=== PATIENT | female | born 1965 | race Caucasian/White ===

== ENCOUNTER 2022-02-07 22:48 | Emergency (ER) | payer SELFPAY ==
[~2022-02-07] VITALS: Ht 162.6 cm; Wt 108.9 kg
[2022-02-07 22:50] VITALS: BP_SYST 170; BP_SYST 175; BP_DIAS 78
--- NOTE | 2022-02-07 22:50 | NUR ---
TO BED AMBULATORY
--- NOTE | 2022-02-07 23:17 | NUR ---
PT AMBULATED TO BED #7
--- NOTE | 2022-02-07 23:30 | NUR ---
56 Y/O FEMALE BIB SELF, C/O SOB X2 DAYS. PATIENT PRESENTS TO ED WITH RESPIRATIONS WNL. PT STATES YESTERDAY SHE HEARD HER BREATH SOUND "GURGGLY" WHILE IN BED AND NEEDS TO PROP HERSELF UP WITH PILLOWS; PT ALSO NOTICED TODAY THAT THERE WAS ALL OVER SWELLING. DENIES N/V/D; PT IS NOT DIZZY OR TACHYPNIC; SKIN IS PINK/WARM/DRY; AAOX4 WITH EVEN AND STEADY GAIT; HR EVEN AND REGULAR; PT DENIES ANY FEVER OR CP AT THIS TIME; VSS; PATIENT POSITIONED FOR COMFORT; HOB ELEVATED; BEDRAILS UP X2; BED DOWN. ER MD MADE AWARE OF PT STATUS. FALL W/ INJURY TO R ELBOW LAST WK, SEEN AT [facility]. PT STATES SHE HAS NEEDED TO USE HER INHALER MORE OFTEN SINCE THE INJURY. HX: CHOLECYSTECTOMY, ASTHMA, AORTIC VALVE REPLACEMENT (1990) [facility] MEDS: ALBUTEROL, SINGULAIR, LISINOPRIL, WARFARIN, ZOLOFT
--- NOTE | 2022-02-07 23:42 | NUR ---
urine cup provided
--- NOTE | 2022-02-07 23:53 | NUR ---
RAD AT BESIDE FOR CXR
[2022-02-07] MEDS ORDERED: NITROGLYCERIN 0.4 MG TAB SL ONE (23:55)
[2022-02-08 00:07] LABS: PHOSPHORUS 2.4 mg/dL (2.5-4.9)
[2022-02-08 00:09] LABS: ALBUMIN 3.3 g/dL (3.4-5.0); ANION GAP 10.1 (8-16); CARBON DIOXIDE 28.4 mmol/L (21-32); CREATININE 0.9 mg/dL (0.6-1.3); POTASSIUM 3.5 mmol/L (3.5-5.1); TOTAL BILIRUBIN 0.3 mg/dL (0.0-1.0)
[2022-02-08 00:20] LABS: BASOPHILS # (AUTO) 0.1 K/uL (0.00-0.22); BASOPHILS % (AUTO) 0.7 % (0.0-2.0); EOSINOPHILS # (AUTO) 0.3 K/uL (0-0.4); HEMATOCRIT 36.8 % (36-48); HEMOGLOBIN 12.2 g/dL (12.0-16.0); LYMPHOCYTES # (AUTO) 2.4 K/uL (2.5-16.5); LYMPHOCYTES % (AUTO) 30.3 % (20.5-51.1); MEAN CORPUSCULAR HEMOGLOBIN 29 pg (27-31); MEAN CORPUSCULAR HGB CONC 33 g/dL (33-37); MEAN CORPUSCULAR VOLUME 88.9 fL (80-94); MONOCYTES # (AUTO) 0.6 K/uL (0.8-1.0); MONOCYTES % (AUTO) 7.2 % (1.7-9.3); NEUTROPHILS # (AUTO) 4.5 K/uL (1.8-7.7); NEUTROPHILS % (AUTO) 57.8 % (42.2-75.2); PLATELET COUNT (AUTO) 224 K/uL (140-450); RED BLOOD CELL COUNT(AUTO) 4.14 MIL/uL (4.20-5.40); RED CELL DISTRIBUTION WIDTH 13.2 % (11.6-13.7); WHITE BLOOD COUNT (AUTO) 7.8 K/uL (4.8-10.8)
--- NOTE | 2022-02-08 00:54 | NUR ---
STATED NO URGE TO URINATE AT THIS TIME
--- NOTE | 2022-02-08 01:10 | NUR ---
PT RESTING COMFORTABLY IN BED WATCHING HER PHONE
[2022-02-08] MEDS ORDERED: FURO-572 PO ×2 (03:01→03:25)
[2022-02-08 03:12] LABS: APPEARANCE,URINE CLEAR (CLEAR); BILIRUBIN,URINE NEGATIVE (NEGATIVE); BLOOD, URINE NEGATIVE (NEGATIVE); COLOR,URINE YELLOW (YELLOW); LEUKOCYTE ESTERASE ,URINE NEGATIVE (NEGATIVE); NITRITE, URINE NEGATIVE (NEGATIVE); UGLUCOSE NEGATIVE (NEGATIVE)
[2022-02-08 03:28] VITALS: BP 120/60
--- NOTE | 2022-02-08 03:29 | NUR ---
Patient discharged with v/s stable. Written and verbal after care instructions given and explained. Patient alert, oriented and verbalized understanding of instructions. Ambulatory with steady gait. All questions addressed prior to discharge. ID band removed. Patient advised to follow up with PMD. Rx of Lasix given. Patient educated on indication of medication including possible reaction and side effects. Opportunity to ask questions provided and answered. VSS, A/OX4, AMBULATORY, UNLABORED BREATHING, AND CALM DEMEANOR.
== END 2022-02-08 03:26 | disposition home or self-care (01) ==
LOC: MED 22:48
DX: R60.0 Localized edema (principal); R06.02 Shortness of breath; I51.9 Heart disease, unspecified; F15.10 Other stimulant abuse, uncomplicated
CPT/HCPCS: 36415; 71045; 80053; 81003; 83735; 83880; 84100; 84484; 85025; 93005; 99285; Q0092